=== PATIENT | male | born 1980 | race African-American/Black ===

== ENCOUNTER 2018-10-28 20:04 | Emergency (ER) | payer OTHER ==
[2018-10-28] MEDS ORDERED: ASPIRIN 81 MG TABLET, CHEWABLE PO ONE (20:27)
[2018-10-28 20:51] LABS: ABSOLUTE BASOPHILS # (AUTO) 0.1 10^3/uL (0.0-0.2); ABSOLUTE EOSINOPHILS # (AUTO) 0.1 10^3/uL (0.0-0.6); ABSOLUTE LYMPHOCYTES (AUTO) 2.2 10^3/uL (0.5-4.7); ABSOLUTE MONOCYTES (AUTO) 1.1 10^3/uL (0.1-1.4); ABSOLUTE NEUT (AUTO) 4.6 10^3/uL (1.7-8.2); BASOPHILS % (AUTO) 0.8 % (0-2); EOSINOPHILS % (AUTO) 0.8 % (0-6); HEMATOCRIT 40.6 % (37.9-51.0); HEMOGLOBIN 13.8 g/dL (13.5-17.0); LYMPHOCYTES % (AUTO) 27.3 % (13-45); MEAN CORPUSCULAR VOLUME 94 fl (80-97); MONOCYTES % (AUTO) 13.5 % (3-13); PLATELET COUNT 184 10^3/uL (150-450); RED BLOOD COUNT 4.31 10^6/uL (4.35-5.55); RED CELL DISTRIBUTION WIDTH 13.7 % (11.5-14.0); SEGMENTED NEUTROPHILS % (AUTO) 57.6 % (42-78); TOTAL CELLS COUNTED % (AUTO) 100 %; WHITE BLOOD COUNT 7.9 10^3/uL (4.0-10.5)
--- NOTE | 2018-10-28 21:05 | RADIOLOGY REPORT (SQ) ---
PROCEDURE: XR CHEST 1 VIEW HISTORY: chest pain COMPARISON: None TECHNIQUE: The study was done on 10/28/2018 at 8:51 PM Single projection of the chest was done. FINDINGS: The lung barlow are well inflated . There are no discrete airspace infiltrates, pneumothoraces or pleural effusions. The pulmonary vascularity is normal. The cardiomediastinal silhouette is unremarkable for patient's age and sex. IMPRESSION: There is no acute pleural-parenchymal process seen in the imaged lung barlow. Location of Interpretation: Teleradiology
[2018-10-28 21:13] LABS: ALANINE AMINOTRANSFERASE 26 U/L (21-72); ALBUMIN 4.7 g/dL (3.5-5.0); ALKALINE PHOSPHATASE 57 U/L (38-126); ANION GAP 12 (5-19); ASPARTATE AMINO TRANSFERASE 32 U/L (17-59); BILIRUBIN,DIRECT 0.3 mg/dL (0.0-0.4); BILIRUBIN,TOTAL 0.5 mg/dL (0.2-1.3); BLOOD UREA NITROGEN 20 mg/dL (7-20); CALCIUM 9.9 mg/dL (8.4-10.2); CARBON DIOXIDE 26 mmol/L (22-30); CHLORIDE 103 mmol/L (98-107); CREATINE KINASE 605 U/L (55-170); GLUCOSE 79 mg/dL (75-110); POTASSIUM 4.4 mmol/L (3.6-5.0); SODIUM 141.4 mmol/L (137-145); TOTAL PROTEIN 7.5 g/dL (6.3-8.2)
[2018-10-28 21:25] LABS: CREATINE KINASE MB 3.48 ng/mL (<4.55)
--- NOTE | 2018-10-28 21:26 | ER Document Report ---
ED Cardiac - General Chief Complaint: Chest Pain Stated Complaint: CHEST PAIN, SHORT OF BREATH Time Seen by Provider: 10/28/18 20:27 TRAVEL OUTSIDE OF THE [place] IN LAST 30 DAYS: No - HPI Patient complains to provider of: Other - 38-year-old otherwise healthy man that presents for evaluation of his chest and tightness in the shoulder which developed tonight while he was at work at [employer]. His notes that he has been under a lot of stress lately and working 2 jobs he had a similar episode in the past under great stress in June at which time he did not seek evaluation in the emergency department or anywhere else. He denies a trauma to the chest loss of consciousness lightheadedness fevers chills cough abdominal pain diarrhea constipation or dysuria. has no family medical history significant for cardiac problems. - Related Data Allergies/Adverse Reactions: No Known Allergies Allergy (Unverified 07/10/13 17:41) Past Medical History - General Information source: Patient, Relative - Social History Smoking Status: Current Every Day Smoker Smoking Education Provided: Yes Family History: Reviewed & Not Pertinent Patient has suicidal ideation: No Patient has homicidal ideation: No Renal/ Medical History: Denies: Hx Peritoneal Dialysis - Immunizations Immunizations up to date: Yes Hx Diphtheria, Pertussis, Tetanus Vaccination: Yes - 2009 Review of Systems - Review of Systems -: Yes All other systems reviewed and negative Physical Exam - Vital signs Vitals: Temp Pulse Resp BP Pulse Ox 97.6 F 74 16 130/85 H 100 10/28/18 20:18 10/28/18 20:18 10/28/18 20:18 10/28/18 20:18 10/28/18 20:18 - General General appearance: Appears well, Alert - HEENT Head: Normocephalic, Atraumatic Eyes: Normal Pupils: PERRL - Respiratory Respiratory status: No respiratory distress Chest status: Nontender Breath sounds: Normal Chest palpation: Normal - Cardiovascular Rhythm: Regular Heart sounds: Normal auscultation Murmur: No - Abdominal Inspection: Normal Distension: No distension Bowel sounds: Normal Tenderness: Nontender Organomegaly: No organomegaly - Back Back: Normal, Nontender - Extremities General upper extremity: Normal inspection, Nontender, Normal color, Normal ROM , Normal temperature General lower extremity: Normal inspection, Nontender, Normal color, Normal ROM , Normal temperature, Normal weight bearing. No: Andrzej's sign - Neurological Neuro grossly intact: Yes Cognition: Normal Orientation: AAOx4 [place] Coma Scale Eye Opening: Spontaneous [place] Coma Scale Verbal: Oriented Jass Coma Scale Motor: Obeys Commands Jass Coma Scale Total: 15 Speech: Normal Motor strength normal: LUE, RUE, LLE, RLE Sensory: Normal - Psychological Associated symptoms: Normal affect, Normal mood Course - Re-evaluation Re-evalutation: 10/29/18 02:56 Is a 38-year-old man who presents with atypical left-sided chest pain which developed while he was at work tonight. On examination he does have an EKG which is concerning because it demonstrates some ST segment elevation though it is likely benign early re-pole. He is an -[place] young man was told previously that he did have an abnormal EKG. We will defer activation of STEMI at this time. On examination the gentleman does appear in moderate distress with some shortness of breath. We will obtain troponins x2 EKG cardiac monitoring chest x-ray and labs. We will administer fentanyl for his chest pain. Following administration of fentanyl patient's chest pain is entirely resolved. His troponins have been negative x2. His chest x-ray and labs are reassuring. On reassessment the patient appears entirely at rest, his notes that she believes that this could be related to stress in their life as he is currently working 2 jobs. As a gentleman does have 2- troponins is is chest pain-free at this time and has few risk factors for more serious underlying condition believe he is likely safe for discharge return precautions at this time. At the time of discharge he was hemodynamically stable without any active chest pain. - Vital Signs Vital signs: Temp Pulse Resp BP Pulse Ox 97.6 F 74 16 109/40 L 100 10/28/18 20:18 10/28/18 20:18 10/29/18 00:03 10/29/18 00:03 10/29/18 00:03 - Laboratory Result Diagrams: 10/28/18 20:38 10/28/18 20:38 Laboratory results interpreted by me: 10/28/18 10/28/18 20:38 20:38 RBC 4.31 L Monocytes % 13.5 H Creatine Kinase 605 H Discharge - Discharge Clinical Impression: Chest pain Qualifiers: Chest pain type: unspecified Qualified Code(s): R07.9 - Chest pain, unspecified Condition: Good Disposition: HOME, SELF-CARE Instructions: Chest Pain of Unclear Cause ([facility]) Additional Instructions: You were seen today in the emergency department for your chest pain. You had an evaluation including a physical exam as well as blood work for damage to your heart, an EKG, and x-ray. No damage to your heart was identified today. Your EKG does show that you have early repolarization. This is normal. You should try and avoid stressors as this may have triggered today's episode. You should return in case of any worsening chest pain fevers chills or inability to breathe otherwise he should schedule an appointment with a primary physician in the coming weeks. Referrals: DEANN HERCULES PA-C [Primary Care Provider] - Follow up as needed
[2018-10-28 21:29] LABS: TROPONIN I < 0.012 ng/mL
[2018-10-29 01:08] VITALS: BP 110/84
--- NOTE | 2018-10-29 07:47 | EKG REPORT ---
SEVERITY:- ABNORMAL ECG - SINUS RHYTHM ST ELEV, PROBABLE NORMAL EARLY REPOL PATTERN ACCELERATED AV CONDUCTION. : Confirmed by: Jb Romo MD 29-Oct-2018 07:46:55
== END 2018-10-29 01:09 | disposition home or self-care (01) ==
LOC: ER 20:04
DX: R07.9 Chest pain, unspecified (principal); R06.02 Shortness of breath; M25.519 Pain in unspecified shoulder; F17.200 Nicotine dependence, unspecified, uncomplicated
CPT/HCPCS: 36415; 71045; 80053; 82550; 82553; 84484; 85025; 93005; 93010; 99285